=== PATIENT | female | born 1990 | race Two or more races ===

== ENCOUNTER 2024-08-08 11:47 | Day surgery (SDC) | payer OTHER ==
[2024-08-08 11:17] LABS: BASO % 0.6 % (0.1-1.2); EOS # 0.07 (0.04-0.54); EOS % 0.6 % (0.7-7.0); HEMATOCRIT 37.2 % (34.1-44.9); HEMOGLOBIN 12.7 g/dL (11.2-15.7); LYMPH # 2.47 (1.18-3.74); LYMPH % 22.7 % (19.3-53.1); MEAN CORPUSCULAR HEMOGLOBIN 29.4 pg (25.6-32.2); MONO # 0.59 (0.24-0.82); MONO % 5.4 % (4.7-12.5); NEUT # 7.62 (1.56-6.13); NEUT % 70.2 % (34.0-71.1); PLATELET COUNT 281 K/uL (163-369); RED BLOOD COUNT 4.32 M/uL (3.93-5.22); RED CELL DISTRIBUTION WIDTH 12.5 % (11.6-14.4)
[2024-08-08 11:35] LABS: INR 1.05; PARTIAL THROMBOPLASTIN TIME 29.6 SECONDS (22.0-34.0); PROTHROMBIN TIME 11.4 SECONDS (9.0-11.5)
[2024-08-08] MEDS ORDERED: CEFOXITIN SODIUM 2,000 MG VIAL IV ONE (15:12)
[2024-08-08] MEDS ORDERED: POVIDONE-IODINE 118 ML BOTT TOP ONE (18:33)
== END 2024-08-08 21:40 | disposition home or self-care (01) ==
LOC: CIR.AMB 11:47
PROVIDERS: ATTEND Obstetrics & Gynecology Maternal & Fetal Medicine
DX: O02.1 Missed abortion (principal)